=== PATIENT | female | born 1995 | race Caucasian/White ===

== ENCOUNTER 2022-07-08 11:48 | Emergency (ER) | payer MEDICAID ==
[~2022-07-08] VITALS: Ht 162.6 cm; Wt 59.0 kg
--- NOTE | 2022-07-08 12:09 | NUR ---
PT AMB TO ER MED BED
[2022-07-08 12:27] VITALS: BP 126/72
--- NOTE | 2022-07-08 12:34 | NUR ---
C/O OF FEVER, HEADACHE, SORE THROAT AND SOB X 1 DAY. PT TESTED SELF FOR COVID 3X ALL CAME OUT NEG. SULFA ALLERGY MEDS: DENIES PMH: DENIES
[2022-07-08] MEDS ORDERED: IBUPROFEN 600 MG TAB PO ONE (12:55)
[2022-07-08] MEDS ORDERED: IBUP-2213 PO (13:00)
[2022-07-08] MEDS ORDERED: BENZ150C2 PO (13:00)
[2022-07-08 13:19] VITALS: BP 122/65
--- NOTE | 2022-07-08 13:20 | NUR ---
Patient discharged with v/s stable. Written and verbal after care instructions given and explained. Patient alert, oriented and verbalized understanding of instructions. Ambulatory with steady gait. All questions addressed prior to discharge. ID band removed. Patient advised to follow up with PMD. Rx of IBU,BENZONATATE given. Patient educated on indication of medication including possible reaction and side effects. Opportunity to ask questions provided and answered.
== END 2022-07-08 13:20 | disposition home or self-care (01) ==
LOC: MED 11:48
DX: R05.9 Cough, unspecified (principal); R09.81 Nasal congestion; Z88.2 Allergy status to sulfonamides; Z79.899 Other long term (current) drug therapy
CPT/HCPCS: 99283

== ENCOUNTER 2022-12-30 17:59 | Emergency (ER) | payer MEDICAID ==
[~2022-12-30] VITALS: Ht 162.6 cm; Wt 73.1 kg
[~2022-12-30 17:59] MED LIST: BENZ150C2 PO; IBUP-2213 PO
[2022-12-30 18:11] VITALS: BP 148/85
--- NOTE | 2022-12-30 18:30 | NUR ---
27YO FEMALE PT C/O HEMATURIA X4DAYS. REPORTS INTERMITTENT LLQ CRAMPING AND BLOOD ON WIPING. STATES FEVER W/ RELIEF AFTER NIGHTQUIL. DENIES DYASURIA, N/V/D OR BACK PAIN. PT AAOX4, NO VISIBLE DISTRESS. HOB POSITIONED PER COMFORT HX:DENIES ALLERGIES: SULFA
[2022-12-30 18:40] LABS: APPEARANCE,URINE CLEAR (CLEAR); BILIRUBIN,URINE NEGATIVE (NEGATIVE); BLOOD, URINE 1+ (NEGATIVE); COLOR,URINE YELLOW (YELLOW); LEUKOCYTE ESTERASE ,URINE NEGATIVE (NEGATIVE); NITRITE, URINE NEGATIVE (NEGATIVE); PH,URINE 7.5 (5.0-9.0); UGLUCOSE NEGATIVE (NEGATIVE)
[2022-12-30] MEDS ORDERED: NACL 0.9% 1,000 ML IV SCH (18:50)
[2022-12-30 18:56] LABS: WBC,URINE 0-5 /HPF (0-5)
--- NOTE | 2022-12-30 19:02 | NUR ---
blood drawn , walked and handed to lab
[2022-12-30 19:09] LABS: BASOPHILS % (AUTO) 0.2 % (0.0-2.0); EOSINOPHILS % (AUTO) 0.5 % (0.0-4.0); HEMATOCRIT 41.9 % (36-48); HEMOGLOBIN 14.5 g/dL (12.0-16.0); LYMPHOCYTES # (AUTO) 2.2 K/uL (2.5-16.5); MEAN CORPUSCULAR HEMOGLOBIN 31 pg (27-31); MEAN CORPUSCULAR HGB CONC 35 g/dL (33-37); MEAN CORPUSCULAR VOLUME 88.6 fL (80-94); MONOCYTES # (AUTO) 0.4 K/uL (0.8-1.0); MONOCYTES % (AUTO) 5.2 % (1.7-9.3); NEUTROPHILS # (AUTO) 4.7 K/uL (1.8-7.7); NEUTROPHILS % (AUTO) 64.1 % (42.2-75.2); PLATELET COUNT (AUTO) 220 K/uL (140-450); RED BLOOD CELL COUNT(AUTO) 4.73 MIL/uL (4.20-5.40); RED CELL DISTRIBUTION WIDTH 12.5 % (11.6-13.7); WHITE BLOOD COUNT (AUTO) 7.3 K/uL (4.8-10.8)
--- NOTE | 2022-12-30 19:12 | NUR ---
REPORT GIVEN TO MISTY RAMOS. TRANSFER OF CARE AT THIS TIME.
--- NOTE | 2022-12-30 19:17 | NUR ---
Pt taken to CT
[2022-12-30 19:28] LABS: ALBUMIN 4.3 g/dL (3.4-5.0); ANION GAP 10.2 (8-16); CARBON DIOXIDE 31.4 mmol/L (21-32); CREATININE 0.7 mg/dL (0.6-1.3); POTASSIUM 3.6 mmol/L (3.5-5.1); TOTAL BILIRUBIN 0.5 mg/dL (0.0-1.0)
--- NOTE | 2022-12-30 19:32 | NUR ---
Pt returned from CT
[2022-12-30] MEDS ORDERED: IBUP-2213 PO (20:33)
[2022-12-30 21:16] VITALS: BP 148/85
--- NOTE | 2022-12-30 21:17 | NUR ---
Patient discharged with v/s stable. Written and verbal after care instructions given and explained. Patient verbalized understanding. Ambulatory with steady gait. All questions addressed prior to discharge. Advised to follow up with PMD.
--- NOTE | 2022-12-31 13:30 | NUR ---
LATE ENTRY -- CONFIRMED WITH NURSE NS INFUSION COMPLETED AT 200112/30/22
== END 2022-12-30 21:17 | disposition home or self-care (01) ==
LOC: MED 17:59
DX: R31.9 Hematuria, unspecified (principal); N83.202 Unspecified ovarian cyst, left side; Z88.2 Allergy status to sulfonamides
CPT/HCPCS: 36415; 74176; 80053; 81001; 81025; 83690; 85025; 87086; 96360; 99284; J7030